=== PATIENT | female | born 1935 | race Caucasian/White ===

== ENCOUNTER 2017-01-24 18:44 | Emergency (ER) | payer OTHER ==
[~2017-01-24] VITALS: Ht 162.6 cm; Wt 99.2 kg
[~2017-01-24 18:44] MED LIST: ADVAIR 250/501 DISK IH; ASPIR 8181 M1 PO; ATENOLOL25 MG PO; CLOPIDOGREL75 MG PO; FUROSEMIDE40 MG PO; LEVOFLOXACIN500 MG PO; LO-DOSE ASPIRIN81 M1 PO; LOVASTATIN40 MG PO; NOVOLOG MI100 UNIT/4 SC; PREDNISONE20 MG PO; PROAIR HFA8.5 GM IH; PROVENTIL,2.5 MG/3 M IH; RAMIPRIL5 MG PO; SPIRIVA1 INHALATI IH; VITAMIN D31000 UNIT PO
[2017-01-24 19:59] VITALS: BP 180/77
== END 2017-01-24 20:04 | disposition home or self-care (01) ==
LOC: EME 18:44
DX: S80.01XA Contusion of right knee, initial encounter (principal); W06.XXXA Fall from bed, initial encounter; Y92.003 Bedroom of unspecified non-institutional (private) residence as the place of occurrence of the external cause; J44.9 Chronic obstructive pulmonary disease, unspecified; Z79.82 Long term (current) use of aspirin; Z87.891 Personal history of nicotine dependence
CPT/HCPCS: 73060; 73564; 99281; 99284

== ENCOUNTER 2017-07-10 14:26 | Inpatient (IN) | payer OTHER ==
[~2017-07-10] VITALS: Ht 162.6 cm; Wt 90.9 kg
[2017-07-10 15:16] LABS: EOSINOPHIL (%) 1.7 % (0-5); EOSINOPHIL COUNT 0.1 K/uL (0-0.3); HEMATOCRIT 30.3 % (36.0-46.0); IMMATURE GRANULOCYTE (%) 0.4 % (0.0-0.7); INSTRUMENT ABS NEUTROPHIL CT 4.3 K/uL; LYMPHOCYTE COUNT 0.6 K/uL (1.0-2.8); MCH 25.5 PG (29.0-34.0); MCHC 30.4 G/DL (30.0-36.0); MCV 83.9 FL (83-99); MEAN PLAT.VOLUME 8.5 uM^3 (9.5-12.4); MONOCYTE (%) 6.7 % (3-12); MONOCYTE COUNT 0.4 K/uL (0-0.8); NEUTROPHIL (%) 79.5 % (45-76); NEUTROPHIL COUNT 4.3 K/uL (1.8-6.4); PLATELET COUNT 183 K/uL (156-360); RBC DIS.WIDTH-CV 13.3 % (11.8-14.6); RBC DIS.WIDTH-SD 41.1 % (39-53); RED BLOOD COUNT 3.61 M/uL (3.80-5.20); WHITE BLOOD COUNT 5.4 K/uL (4.1-10.2)
[2017-07-10 15:27] LABS: CHLORIDE 95 mEq/L (99-109); POTASSIUM 4.7 mEq/L (3.7-5.4); SODIUM 140 mEq/L (136-147)
[2017-07-10 15:30] LABS: GLUCOSE 108 mg/dL (70-99)
[2017-07-10 15:31] LABS: ANION GAP 11 MEQ/L (2-14)
[2017-07-10 15:32] LABS: TOTAL BILIRUBIN 0.4 mg/dL (0.0-1.0)
[2017-07-10 15:33] LABS: ALKALINE PHOSPHATASE 76 IU/L (3-129); GFR ESTIMATE (CALCULATED) 31 mL/min/
[2017-07-10 15:34] LABS: UREA NITROGEN (BUN) 27 mg/dL (9-23)
[2017-07-10 15:36] LABS: CREATINE KINASE 73 IU/L (1-294); TOTAL CK 73 IU/L (1-294)
[2017-07-10 15:47] LABS: TROP-I INTERPRETATION NEGATIVE; TROPONIN-I 0.01 ng/mL (0.0-0.30)
[2017-07-10 16:20] LABS: CK-MB 1.9 ng/mL (0.0-4.9)
[2017-07-10] MEDS ORDERED: FUROSEMIDE20 MG PO ×2 (19:09→19:10)
[2017-07-10] MEDS ORDERED: CARVEDILOL3.125 MG PO (19:10)
[2017-07-10 22:26] VITALS: BP 160/72
[2017-07-10 23:20] LABS: POINT-OF-CARE METER ID UU14208750
[2017-07-10 23:29] LABS: ADD MIUA? YES; BILIRUBIN NEGATIVE; BLOOD SMALL; COLOR YELLOW ((YELLOW)); GLUCOSE (STRIP) >=500; KETONES NEGATIVE; LEUKOCYTES SMALL; NITRITE NEGATIVE; PROTEIN (STRIP) NEGATIVE; SPECIFIC GRAVITY 1.006 (1.000-1.030); UROBILINOGEN 0.2 MG/DL (0.2-1.0)
[2017-07-10 23:44] LABS: BACTERIA NONE SEEN /HPF; EPITHELIAL CELLS NONE SEEN /HPF; MUCUS TRACE /LPF; RED BLOOD CELLS 0-5 /HPF (0-5); UCUL ADDED? YES; WHITE BLOOD CELLS 30-40 /HPF (0-5)
[2017-07-11 01:29] LABS: TROP-I INTERPRETATION NEGATIVE; TROPONIN-I 0.02 ng/mL (0.0-0.30)
[2017-07-11 03:47] VITALS: BP 157/68
[2017-07-11 06:18] LABS: POINT-OF-CARE METER ID UU14208750
[2017-07-11 07:23] VITALS: BP 169/70
[2017-07-11 07:51] LABS: INTERNAL CONTROL VALID? YES
[2017-07-11 07:54] LABS: EOSINOPHIL (%) 0 % (0-5); IMMATURE GRANULOCYTE (%) 0.5 % (0.0-0.7); INSTRUMENT ABS NEUTROPHIL CT 3.2 K/uL; LYMPHOCYTE COUNT 0.5 K/uL (1.0-2.8); MCH 25.6 PG (29.0-34.0); MCHC 30.7 G/DL (30.0-36.0); MCV 83.3 FL (83-99); MEAN PLAT.VOLUME 9.2 uM^3 (9.5-12.4); MONOCYTE (%) 9.2 % (3-12); MONOCYTE COUNT 0.4 K/uL (0-0.8); NEUTROPHIL (%) 78.7 % (45-76); NEUTROPHIL COUNT 3.2 K/uL (1.8-6.4); PLATELET COUNT 223 K/uL (156-360); RBC DIS.WIDTH-CV 13.3 % (11.8-14.6); RBC DIS.WIDTH-SD 40.4 % (39-53); RED BLOOD COUNT 3.24 M/uL (3.80-5.20); WHITE BLOOD COUNT 4.1 K/uL (4.1-10.2)
[2017-07-11 08:19] LABS: ANION GAP 7 MEQ/L (2-14); CHLORIDE 97 MEQ/L (99-109); GFR ESTIMATE (CALCULATED) 31 mL/min/; POTASSIUM 4.5 MEQ/L (3.7-5.4); SAMPLE HEMOLYSIS CHECK 0; SAMPLE ICTERIC CHECK 0; SAMPLE LIPEMIA CHECK 0; SODIUM 143 MEQ/L (136-147); UREA NITROGEN (BUN) 32 mg/dL (9-23)
[2017-07-11 08:21] LABS: TROP-I INTERPRETATION NEGATIVE; TROPONIN-I 0.05 ng/mL (0.0-0.30)
[2017-07-11 08:24] LABS: GLUCOSE 76 mg/dL (70-99)
[2017-07-11 11:38] VITALS: BP 145/65
[2017-07-11 11:41] LABS: POINT-OF-CARE METER ID UU14208750
[2017-07-11 15:42] VITALS: BP 149/65
[2017-07-11 16:48] LABS: POINT-OF-CARE METER ID UU14162508
[2017-07-11 19:09] VITALS: BP 150/60
[2017-07-11 21:41] LABS: POINT-OF-CARE METER ID UU14208750
[2017-07-12 00:17] VITALS: BP 148/69
[2017-07-12 04:09] VITALS: BP 143/61
[2017-07-12 06:47] LABS: POINT-OF-CARE METER ID UU14208750
[2017-07-12 06:56] LABS: HEMATOCRIT 29.1 % (36.0-46.0); MCHC 31.3 G/DL (30.0-36.0); MCV 83.1 FL (83-99); MEAN PLAT.VOLUME 9.1 uM^3 (9.5-12.4); PLATELET COUNT 224 K/uL (156-360); RBC DIS.WIDTH-CV 13.4 % (11.8-14.6); RBC DIS.WIDTH-SD 40.2 % (39-53); WHITE BLOOD COUNT 5.3 K/uL (4.1-10.2)
[2017-07-12 07:47] VITALS: BP 186/74
[2017-07-12 08:14] LABS: ANION GAP 5 MEQ/L (2-14); CHLORIDE 94 MEQ/L (99-109); GFR ESTIMATE (CALCULATED) 24 mL/min/; IRON 30 MCG/DL (35-150); POTASSIUM 5.1 MEQ/L (3.7-5.4); SAMPLE HEMOLYSIS CHECK 0; SAMPLE ICTERIC CHECK 0; SAMPLE LIPEMIA CHECK 0; SODIUM 139 MEQ/L (136-147); UREA NITROGEN (BUN) 40 mg/dL (9-23)
[2017-07-12 08:15] LABS: GLUCOSE 168 mg/dL (70-99)
[2017-07-12 09:32] LABS: INTER. NORMALIZED RATIO 1.2; PROTHROMBIN TIME 12.9 SEC (10.2-12.9)
[2017-07-12 09:35] LABS: PTT 31.4 SEC (25-37)
[2017-07-12 12:16] LABS: POINT-OF-CARE METER ID UU14208750
[2017-07-12 14:57] LABS: TYPE OF FLUID PLEURAL
[2017-07-12 15:35] LABS: BODY FLUID LDH 101 IU/L
[2017-07-12 15:38] VITALS: BP 142/62
[2017-07-12 15:49] LABS: BODY FLUID EOSINOPHILS 0 % (0-25); BODY FLUID RBC'S 2000 /MM^3 (0-100); BODY FLUID WBC'S 611 /MM^3 (0-500); MONONUCLEAR WBC'S 76 %; POLYNUCLEAR WBC'S 24 % (0-25)
[2017-07-12 15:51] LABS: POINT-OF-CARE METER ID UU14208750
[2017-07-12 20:03] LABS: GLUCOSE 196 mg/dL (70-99); LACTATE DEHYDROGENASE 161 IU/L (20-246)
[2017-07-12 21:49] LABS: POINT-OF-CARE METER ID UU14208750
[2017-07-13 00:18] VITALS: BP 136/63
[2017-07-13 06:35] LABS: POINT-OF-CARE METER ID UU14208750
[2017-07-13 07:14] VITALS: BP 166/72
[2017-07-13 07:50] LABS: HEMATOCRIT 30.2 % (36.0-46.0); MCH 25.8 PG (29.0-34.0); MCHC 31.1 G/DL (30.0-36.0); MEAN PLAT.VOLUME 9.3 uM^3 (9.5-12.4); PLATELET COUNT 250 K/uL (156-360); RBC DIS.WIDTH-CV 13.5 % (11.8-14.6); RBC DIS.WIDTH-SD 40.3 % (39-53); RED BLOOD COUNT 3.64 M/uL (3.80-5.20); WHITE BLOOD COUNT 7.5 K/uL (4.1-10.2)
[2017-07-13 08:08] LABS: ANION GAP 7 MEQ/L (2-14); CHLORIDE 96 MEQ/L (99-109); POTASSIUM 5.3 MEQ/L (3.7-5.4); SAMPLE HEMOLYSIS CHECK 0; SAMPLE ICTERIC CHECK 0; SAMPLE LIPEMIA CHECK 0; SODIUM 139 MEQ/L (136-147)
[2017-07-13 08:13] LABS: GFR ESTIMATE (CALCULATED) 24 mL/min/; GLUCOSE 164 mg/dL (70-99); UREA NITROGEN (BUN) 56 mg/dL (9-23)
[2017-07-13 11:42] LABS: POINT-OF-CARE METER ID UU14208750
[2017-07-13 15:52] VITALS: BP 145/66
[2017-07-13 16:06] LABS: POINT-OF-CARE METER ID UU14208750
[2017-07-13 21:10] LABS: POINT-OF-CARE METER ID UU14208750
[2017-07-13 23:18] VITALS: BP 166/72
[2017-07-14 06:40] LABS: POINT-OF-CARE METER ID UU14208750
[2017-07-14 07:20] VITALS: BP 153/76
[2017-07-14 08:00] LABS: ANION GAP 8 MEQ/L (2-14); CHLORIDE 97 MEQ/L (99-109); GFR ESTIMATE (CALCULATED) 23 mL/min/; GLUCOSE 157 mg/dL (70-99); POTASSIUM 5.1 MEQ/L (3.7-5.4); SAMPLE HEMOLYSIS CHECK 0; SAMPLE ICTERIC CHECK 0; SAMPLE LIPEMIA CHECK 0; SODIUM 140 MEQ/L (136-147); UREA NITROGEN (BUN) 60 mg/dL (9-23)
[2017-07-14 11:35] VITALS: BP 164/78
[2017-07-14 11:47] LABS: POINT-OF-CARE METER ID UU14208750
[2017-07-14 15:40] VITALS: BP 162/72
[2017-07-14 16:33] LABS: POINT-OF-CARE METER ID UU14162508
[2017-07-14 21:15] VITALS: BP 137/59
[2017-07-14 21:24] LABS: POINT-OF-CARE METER ID UU14208750
[2017-07-14 23:51] VITALS: BP 121/58
[2017-07-15 06:30] LABS: POINT-OF-CARE METER ID UU14208750
[2017-07-15 07:37] VITALS: BP 140/62
[2017-07-15 08:19] LABS: ANION GAP 10 MEQ/L (2-14); CHLORIDE 97 MEQ/L (99-109); GFR ESTIMATE (CALCULATED) 22 mL/min/; LACTATE DEHYDROGENASE 141 IU/L (20-246); POTASSIUM 4.5 MEQ/L (3.7-5.4); SAMPLE HEMOLYSIS CHECK 0; SAMPLE ICTERIC CHECK 0; SAMPLE LIPEMIA CHECK 0; SODIUM 142 MEQ/L (136-147); UREA NITROGEN (BUN) 65 mg/dL (9-23)
[2017-07-15 08:21] LABS: GLUCOSE 69 mg/dL (70-99)
[2017-07-15 12:04] LABS: POINT-OF-CARE METER ID UU14208750
[2017-07-15 15:32] VITALS: BP 135/62
[2017-07-15 16:54] LABS: POINT-OF-CARE METER ID UU14208750
[2017-07-15 22:07] LABS: POINT-OF-CARE METER ID UU14208750
[2017-07-15 23:36] VITALS: BP 143/66
[2017-07-16 06:40] LABS: POINT-OF-CARE METER ID UU14208750
[2017-07-16 07:40] VITALS: BP 130/58
[2017-07-16 07:47] LABS: ANION GAP 7 MEQ/L (2-14); CHLORIDE 98 MEQ/L (99-109); GFR ESTIMATE (CALCULATED) 24 mL/min/; POTASSIUM 4.5 MEQ/L (3.7-5.4); SAMPLE HEMOLYSIS CHECK 0; SAMPLE ICTERIC CHECK 0; SAMPLE LIPEMIA CHECK 0; SODIUM 140 MEQ/L (136-147); UREA NITROGEN (BUN) 64 mg/dL (9-23)
[2017-07-16 08:03] LABS: GLUCOSE 88 mg/dL (70-99)
[2017-07-16 12:01] LABS: POINT-OF-CARE METER ID UU14162508
[2017-07-16 15:02] LABS: POINT-OF-CARE METER ID UU14107333
[2017-07-16 18:52] VITALS: BP 143/68
[2017-07-16 21:36] LABS: POINT-OF-CARE METER ID UU14162508
[2017-07-16 23:55] VITALS: BP 159/71
[2017-07-17 03:50] VITALS: BP 144/66
[2017-07-17 06:47] LABS: POINT-OF-CARE METER ID UU14162508
[2017-07-17 08:00] VITALS: BP 180/75
[2017-07-17 08:05] LABS: HEMATOCRIT 28.6 % (36.0-46.0); MCH 26.2 PG (29.0-34.0); MCHC 30.8 G/DL (30.0-36.0); MCV 85.1 FL (83-99); MEAN PLAT.VOLUME 9.8 uM^3 (9.5-12.4); PLATELET COUNT 203 K/uL (156-360); RBC DIS.WIDTH-SD 43.6 % (39-53); RED BLOOD COUNT 3.36 M/uL (3.80-5.20); WHITE BLOOD COUNT 8.8 K/uL (4.1-10.2)
[2017-07-17 08:29] LABS: ANION GAP 5 MEQ/L (2-14); CHLORIDE 100 MEQ/L (99-109); GFR ESTIMATE (CALCULATED) 27 mL/min/; GLUCOSE 100 mg/dL (70-99); POTASSIUM 4.5 MEQ/L (3.7-5.4); SAMPLE HEMOLYSIS CHECK 0; SAMPLE ICTERIC CHECK 0; SAMPLE LIPEMIA CHECK 0; SODIUM 141 MEQ/L (136-147); UREA NITROGEN (BUN) 60 mg/dL (9-23)
[2017-07-17 11:50] LABS: POINT-OF-CARE METER ID UU14162508
[2017-07-17 15:12] VITALS: BP 150/66
[2017-07-17 17:03] LABS: POINT-OF-CARE METER ID UU14162508
[2017-07-17 21:15] LABS: POINT-OF-CARE METER ID UU14162508
[2017-07-17 23:11] VITALS: BP 143/63
[2017-07-18 06:49] LABS: POINT-OF-CARE METER ID UU14162508
[2017-07-18 07:39] LABS: ANION GAP 5 MEQ/L (2-14); CHLORIDE 100 MEQ/L (99-109); GFR ESTIMATE (CALCULATED) 27 mL/min/; GLUCOSE 84 mg/dL (70-99); POTASSIUM 4.4 MEQ/L (3.7-5.4); SAMPLE HEMOLYSIS CHECK 0; SAMPLE ICTERIC CHECK 0; SAMPLE LIPEMIA CHECK 0; SODIUM 142 MEQ/L (136-147); UREA NITROGEN (BUN) 54 mg/dL (9-23)
[2017-07-18 07:50] VITALS: BP 158/62
[2017-07-18 12:19] LABS: POINT-OF-CARE METER ID UU14162508
[2017-07-18] MEDS ORDERED: PREDNISONE10 MG PO (15:35)
[2017-07-18] MEDS ORDERED: DOCUSATE SODIU100 MG PO (15:35)
[2017-07-18] MEDS ORDERED: POLYETHYLENE GL17 GM PO (15:35)
[2017-07-18] MEDS ORDERED: FERROUS SULFAT325 MG PO (15:35)
[2017-07-18 16:51] VITALS: BP 149/67
[2017-07-18 17:12] LABS: POINT-OF-CARE METER ID UU14162508
== END 2017-07-18 17:16 | disposition home health service (06) | DRG 166 ==
LOC: EME 14:26 → EDOF 19:10 → 2EASTP 19:10 → ENRESERV 19:19 → 2EASTP 22:07
PROVIDERS: Emergency Medicine; Hospitalist; Internal Medicine; Internal Medicine Pulmonary Disease; Radiology Diagnostic Radiology
DX: D02.22 Carcinoma in situ of left bronchus and lung (principal); J44.0 Chronic obstructive pulmonary disease with (acute) lower respiratory infection; J96.11 Chronic respiratory failure with hypoxia; J15.9 Unspecified bacterial pneumonia; N39.0 Urinary tract infection, site not specified; I50.9 Heart failure, unspecified; I13.0 Hypertensive heart and chronic kidney disease with heart failure and stage 1 through stage 4 chronic kidney disease, or unspecified chronic kidney disease; E78.5 Hyperlipidemia, unspecified; F32.9 Major depressive disorder, single episode, unspecified; E11.22 Type 2 diabetes mellitus with diabetic chronic kidney disease; J44.1 Chronic obstructive pulmonary disease with (acute) exacerbation; N18.3 Chronic kidney disease, stage 3 (moderate); J98.11 Atelectasis; K21.9 Gastro-esophageal reflux disease without esophagitis; D64.9 Anemia, unspecified; Z99.81 Dependence on supplemental oxygen; Z87.891 Personal history of nicotine dependence; E66.01 Morbid (severe) obesity due to excess calories; Z68.34 Body mass index [BMI] 34.0-34.9, adult; J90 Pleural effusion, not elsewhere classified; J98.09 Other diseases of bronchus, not elsewhere classified
CPT/HCPCS: 71010; 71020; 71250; 76942; 80048; 80053; 81003; 82272; 82550; 82553; 82607; 82746; 82945; 82947 91; 82948; 83540; 83605; 83615; 83615 91; 84155; 84157; 84443; 84466; 84484; 85025; 85027; 85610; 85730; 87040; 87070; 87075; 87077; 87086; 87116; 87186; 87205; 87206; 87449; 88108; 88305; 89051; 93005; 94640; 94640 76; 94760; 94799; 97530 GO; 99202; 99281; 99285; J0461; J1644; J1815; J1956; J2175; J2250; J2310; J2550; J2930; J3010; J7512; J7644

== ENCOUNTER 2017-07-31 18:07 | Inpatient (IN) | payer OTHER ==
[~2017-07-31] VITALS: Ht 162.6 cm; Wt 94.7 kg
[~2017-07-31 18:07] MED LIST changes: +CARVEDILOL3.125 MG PO; +DOCUSATE SODIU100 MG PO; +FERROUS SULFAT325 MG PO; +FUROSEMIDE20 MG PO; +POLYETHYLENE GL17 GM PO; +PREDNISONE10 MG PO
[2017-07-31 19:20] LABS: HEMATOCRIT 31.7 % (36.0-46.0); MCH 26.4 PG (29.0-34.0); MCV 88.1 FL (83-99); MEAN PLAT.VOLUME 9.4 uM^3 (9.5-12.4); PLATELET COUNT 220 K/uL (156-360); RBC DIS.WIDTH-CV 15.4 % (11.8-14.6); WHITE BLOOD COUNT 11.1 K/uL (4.1-10.2)
[2017-07-31 19:26] LABS: INTER. NORMALIZED RATIO 1.2; PROTHROMBIN TIME 13.6 SEC (10.2-12.9)
[2017-07-31 19:28] LABS: PTT 31.5 SEC (25-37)
[2017-07-31 19:32] LABS: CHLORIDE 95 mEq/L (99-109); POTASSIUM 4.7 mEq/L (3.7-5.4); SODIUM 139 mEq/L (136-147)
[2017-07-31 19:34] LABS: GLUCOSE 165 mg/dL (70-99)
[2017-07-31 19:35] LABS: ANION GAP 13 MEQ/L (2-14)
[2017-07-31 19:38] LABS: GFR ESTIMATE (CALCULATED) 29 mL/min/
[2017-07-31 19:39] LABS: UREA NITROGEN (BUN) 33 mg/dL (9-23)
[2017-07-31 19:45] LABS: TROP-I INTERPRETATION POSITIVE
[2017-07-31 19:46] LABS: TROPONIN-I 2.13 ng/mL (0.0-0.30)
[2017-07-31 19:53] LABS: VENOUS PCO2 94 mm Hg (41-51)
[2017-07-31 19:54] LABS: CARBON DIOXIDE (BICARBONATE) > 40.0 MEQ/L (20-31)
[2017-07-31 21:00] LABS: POINT-OF-CARE METER ID UU13113747
[2017-07-31] MEDS ORDERED: NOVOLIN,HU100 UNITS/ SC (21:32)
[2017-07-31] MEDS ORDERED: COLACE100 MG PO (21:32)
[2017-07-31 23:31] LABS: VENOUS PCO2 89 mm Hg (41-51)
[2017-07-31 23:34] LABS: CARBON DIOXIDE (BICARBONATE) > 40.0 MEQ/L (20-31)
[2017-08-01] VITALS (22 sets, daily range): BP systolic 50–173; BP diastolic 33–92
[2017-08-01 01:29] LABS: BASE EXCESS 4.3 mEq/L (-3 to +3); BICARBONATE 37.1 mEq/L (22-26); CARBOXY HGB 2.6 % (0-5); COMMENTS - BLOOD GASES A+C+; DEVICE VENT; FI02 100 %; METHEMOGLOBIN 1.9 % (0-1.5); MODE NIV; PCO2 131 mm Hg (35-45); PO2 170 mm Hg (80-100); SITE RR; TOTAL RESP RATE 26 resp/min
[2017-08-01 01:30] LABS: PEEP 3 CM/H20; PRES. SUPPORT 10 CM/H2O; pH 7.06 (7.35-7.45)
[2017-08-01 01:45] LABS: POINT-OF-CARE METER ID UU14174217; POINT-OF-CARE USER ID 609231305
[2017-08-01 03:11] LABS: METH RESISTANT S AUREUS PCR NEGATIVE (NEGATIVE)
[2017-08-01 03:14] LABS: PROBE CHECK PASS; SPECIMEN PROCESSING CONTROL PASS
[2017-08-01 03:25] LABS: BASE EXCESS 6.7 mEq/L (-3 to +3); BICARBONATE 32.3 mEq/L (22-26); CARBOXY HGB 2.2 % (0-5); PCO2 51 mm Hg (35-45); PO2 177 mm Hg (80-100); pH 7.41 (7.35-7.45)
[2017-08-01 03:26] LABS: COMMENTS - BLOOD GASES C+; DEVICE VENT; FI02 50 %; MECHANICAL RATE 24 resp/min; MODE A/C; PEEP 5 CM/H20; SITE RR; TIDAL VOLUME 450 ML; TOTAL RESP RATE 24 resp/min
[2017-08-01 04:33] LABS: ADD MIUA? YES; BILIRUBIN NEGATIVE; BLOOD SMALL; COLOR AMBER ((YELLOW)); GLUCOSE (STRIP) NEGATIVE; KETONES NEGATIVE; LEUKOCYTES LARGE; NITRITE NEGATIVE; PROTEIN (STRIP) 30; SPECIFIC GRAVITY 1.016 (1.000-1.030)
[2017-08-01 04:41] LABS: BACTERIA RARE /HPF; EPITHELIAL CELLS RARE /HPF; MUCUS TRACE /LPF; UCUL ADDED? YES; WHITE BLOOD CELLS TNTC /HPF (0-5); WHITE BLOOD CELLS CLUMP FEW /HPF (0-5)
[2017-08-01 05:02] LABS: HEMATOCRIT 25.3 % (36.0-46.0); MCH 26.4 PG (29.0-34.0); MCV 87.8 FL (83-99); MEAN PLAT.VOLUME 9.6 uM^3 (9.5-12.4); PLATELET COUNT 191 K/uL (156-360); RBC DIS.WIDTH-CV 15.3 % (11.8-14.6); RBC DIS.WIDTH-SD 48.7 % (39-53); RED BLOOD COUNT 2.88 M/uL (3.80-5.20); WHITE BLOOD COUNT 9.5 K/uL (4.1-10.2)
[2017-08-01 05:24] LABS: TROP-I INTERPRETATION POSITIVE; TROPONIN-I 2.66 ng/mL (0.0-0.30)
[2017-08-01 09:39] LABS: ALKALINE PHOSPHATASE 68 IU/L (3-129); ANION GAP 13 MEQ/L (2-14); CHLORIDE 95 MEQ/L (99-109); GFR ESTIMATE (CALCULATED) 24 mL/min/; GLUCOSE 208 mg/dL (70-99); POTASSIUM 4.9 MEQ/L (3.7-5.4); SAMPLE HEMOLYSIS CHECK 0; SAMPLE ICTERIC CHECK 0; SAMPLE LIPEMIA CHECK 0; SODIUM 139 MEQ/L (136-147); TOTAL BILIRUBIN 0.6 MG/DL (0.0-1.0); UREA NITROGEN (BUN) 43 mg/dL (9-23)
[2017-08-01 10:25] LABS: EOSINOPHIL (%) 0 % (0-5); IMMATURE GRANULOCYTE (%) 0.4 % (0.0-0.7); INSTRUMENT ABS NEUTROPHIL CT 7.4 K/uL; LYMPHOCYTE COUNT 0.4 K/uL (1.0-2.8); MCH 27.6 PG (29.0-34.0); MCHC 31.9 G/DL (30.0-36.0); MCV 86.4 FL (83-99); MEAN PLAT.VOLUME 9.6 uM^3 (9.5-12.4); MONOCYTE COUNT 0.4 K/uL (0-0.8); NEUTROPHIL (%) 89.8 % (45-76); NEUTROPHIL COUNT 7.4 K/uL (1.8-6.4); PLATELET COUNT 209 K/uL (156-360); RBC DIS.WIDTH-CV 15.6 % (11.8-14.6); RED BLOOD COUNT 3.01 M/uL (3.80-5.20); WHITE BLOOD COUNT 8.2 K/uL (4.1-10.2)
[2017-08-01 11:03] LABS: TROP-I INTERPRETATION POSITIVE; TROPONIN-I 3.33 ng/mL (0.0-0.30)
[2017-08-01 11:35] LABS: POINT-OF-CARE METER ID UU14162636
[2017-08-01 14:40] LABS: POINT-OF-CARE METER ID UU13113748
[2017-08-01 16:28] LABS: TROP-I INTERPRETATION POSITIVE; TROPONIN-I 4.13 ng/mL (0.0-0.30)
[2017-08-01 17:44] LABS: POINT-OF-CARE METER ID UU13113748
[2017-08-01 22:17] LABS: TROP-I INTERPRETATION POSITIVE; TROPONIN-I 4.98 ng/mL (0.0-0.30)
[2017-08-01 22:21] LABS: POINT-OF-CARE METER ID UU13113748
[2017-08-02] VITALS (24 sets, daily range): BP systolic 98–151; BP diastolic 35–87
[2017-08-02 03:32] LABS: POINT-OF-CARE METER ID UU14174217
[2017-08-02 05:33] LABS: EOSINOPHIL (%) 0.1 % (0-5); HEMATOCRIT 22.7 % (36.0-46.0); IMMATURE GRANULOCYTE (%) 0.3 % (0.0-0.7); INSTRUMENT ABS NEUTROPHIL CT 5.9 K/uL; LYMPHOCYTE COUNT 0.8 K/uL (1.0-2.8); MCH 26.3 PG (29.0-34.0); MCHC 30.8 G/DL (30.0-36.0); MCV 85.3 FL (83-99); MEAN PLAT.VOLUME 9.9 uM^3 (9.5-12.4); MONOCYTE (%) 8.8 % (3-12); MONOCYTE COUNT 0.7 K/uL (0-0.8); NEUTROPHIL (%) 79.9 % (45-76); NEUTROPHIL COUNT 5.9 K/uL (1.8-6.4); PLATELET COUNT 184 K/uL (156-360); RBC DIS.WIDTH-CV 16.6 % (11.8-14.6); RBC DIS.WIDTH-SD 51.6 % (39-53); RED BLOOD COUNT 2.66 M/uL (3.80-5.20); WHITE BLOOD COUNT 7.4 K/uL (4.1-10.2)
[2017-08-02 05:37] LABS: BASE EXCESS 6.1 mEq/L (-3 to +3); CARBOXY HGB 2.5 % (0-5); METHEMOGLOBIN 1.4 % (0-1.5)
[2017-08-02 05:39] LABS: BICARBONATE 28.7 mEq/L (22-26); COMMENTS - BLOOD GASES A+C+; DEVICE VENT; FI02 30 %; MODE AC; PCO2 32 mm Hg (35-45); PO2 80 mm Hg (80-100); SITE RR; pH 7.56 (7.35-7.45)
[2017-08-02 05:40] LABS: MECHANICAL RATE 24 resp/min; PEEP 5 CM/H20; TIDAL VOLUME 450 ML; TOTAL RESP RATE 24 resp/min
[2017-08-02 05:48] LABS: TROP-I INTERPRETATION POSITIVE; TROPONIN-I 5.37 ng/mL (0.0-0.30)
[2017-08-02 05:58] LABS: ANION GAP 12 MEQ/L (2-14); CHLORIDE 99 MEQ/L (99-109); GFR ESTIMATE (CALCULATED) 24 mL/min/; GLUCOSE 132 mg/dL (70-99); POTASSIUM 3.7 MEQ/L (3.7-5.4); SAMPLE HEMOLYSIS CHECK 0; SAMPLE ICTERIC CHECK 0; SAMPLE LIPEMIA CHECK 0; SODIUM 139 MEQ/L (136-147); UREA NITROGEN (BUN) 42 mg/dL (9-23)
[2017-08-02 11:23] LABS: TROP-I INTERPRETATION POSITIVE; TROPONIN-I 5.16 ng/mL (0.0-0.30)
[2017-08-02 12:04] LABS: POINT-OF-CARE METER ID UU14174217
[2017-08-02 16:31] LABS: TROP-I INTERPRETATION POSITIVE; TROPONIN-I 4.06 ng/mL (0.0-0.30)
[2017-08-02 17:30] LABS: POINT-OF-CARE METER ID UU14174217
[2017-08-02 22:02] LABS: TROP-I INTERPRETATION POSITIVE; TROPONIN-I 2.98 ng/mL (0.0-0.30)
[2017-08-03] VITALS (32 sets, daily range): BP systolic 93–149; BP diastolic 41–84
[2017-08-03 01:07] LABS: POINT-OF-CARE METER ID UU14174217
[2017-08-03 06:40] LABS: POINT-OF-CARE METER ID UU14174217
[2017-08-03 07:22] LABS: HEMATOCRIT 20.9 % (36.0-46.0); MCH 26.3 PG (29.0-34.0); MCHC 29.7 G/DL (30.0-36.0); MCV 88.6 FL (83-99); MEAN PLAT.VOLUME 10.2 uM^3 (9.5-12.4); PLATELET COUNT 138 K/uL (156-360); RBC DIS.WIDTH-CV 16.5 % (11.8-14.6); RBC DIS.WIDTH-SD 52.5 % (39-53); RED BLOOD COUNT 2.36 M/uL (3.80-5.20); WHITE BLOOD COUNT 4.6 K/uL (4.1-10.2)
[2017-08-03 07:42] LABS: ALKALINE PHOSPHATASE 61 IU/L (3-129); ANION GAP 8 MEQ/L (2-14); CHLORIDE 103 MEQ/L (99-109); GFR ESTIMATE (CALCULATED) 27 mL/min/; GLUCOSE 184 mg/dL (70-99); POTASSIUM 3.8 MEQ/L (3.7-5.4); SAMPLE HEMOLYSIS CHECK 0; SAMPLE ICTERIC CHECK 0; SAMPLE LIPEMIA CHECK 0; SODIUM 138 MEQ/L (136-147); TOTAL BILIRUBIN 0.5 MG/DL (0.0-1.0); UREA NITROGEN (BUN) 45 mg/dL (9-23)
[2017-08-03 11:47] LABS: POINT-OF-CARE METER ID UU14174217
[2017-08-03 17:31] LABS: POINT-OF-CARE METER ID UU14208751
[2017-08-03 23:51] LABS: POINT-OF-CARE METER ID UU14208751; POINT-OF-CARE USER ID RADDRS44
[2017-08-04] VITALS (23 sets, daily range): BP systolic 100–148; BP diastolic 49–91
[2017-08-04 05:09] LABS: BASE EXCESS -0.1 mEq/L (-3 to +3); BICARBONATE 27.3 mEq/L (22-26); CARBOXY HGB 2.3 % (0-5); METHEMOGLOBIN 1.2 % (0-1.5); PO2 86 mm Hg (80-100)
[2017-08-04 05:10] LABS: COMMENTS - BLOOD GASES C+A+; DEVICE VENTILATOR; FI02 40 %; MECHANICAL RATE 18 resp/min; MODE AC; PCO2 58 mm Hg (35-45); PEEP 5 CM/H20; SITE LB; TIDAL VOLUME 400 ML; TOTAL RESP RATE 18 resp/min
[2017-08-04 05:11] LABS: pH 7.28 (7.35-7.45)
[2017-08-04 05:50] LABS: EOSINOPHIL (%) 0 % (0-5); HEMATOCRIT 28.9 % (36.0-46.0); IMMATURE GRANULOCYTE (%) 0.5 % (0.0-0.7); INSTRUMENT ABS NEUTROPHIL CT 3.8 K/uL; LYMPHOCYTE COUNT 0.2 K/uL (1.0-2.8); MCH 27.7 PG (29.0-34.0); MCHC 31.5 G/DL (30.0-36.0); MCV 87.8 FL (83-99); MEAN PLAT.VOLUME 10.2 uM^3 (9.5-12.4); MONOCYTE (%) 2.4 % (3-12); MONOCYTE COUNT 0.1 K/uL (0-0.8); NEUTROPHIL COUNT 3.8 K/uL (1.8-6.4); PLATELET COUNT 142 K/uL (156-360); RBC DIS.WIDTH-CV 16.4 % (11.8-14.6); RBC DIS.WIDTH-SD 52.6 % (39-53); RED BLOOD COUNT 3.29 M/uL (3.80-5.20); WHITE BLOOD COUNT 4.1 K/uL (4.1-10.2)
[2017-08-04 06:23] LABS: ANION GAP 9 MEQ/L (2-14); CHLORIDE 105 MEQ/L (99-109); GFR ESTIMATE (CALCULATED) 27 mL/min/; SAMPLE HEMOLYSIS CHECK 0; SAMPLE ICTERIC CHECK 0; SAMPLE LIPEMIA CHECK 0; SODIUM 140 MEQ/L (136-147); UREA NITROGEN (BUN) 54 mg/dL (9-23)
[2017-08-04 06:26] LABS: GLUCOSE 307 mg/dL (70-99); POTASSIUM 4.7 MEQ/L (3.7-5.4)
[2017-08-04 06:36] LABS: POINT-OF-CARE METER ID UU14174217; POINT-OF-CARE USER ID RADDRS44
[2017-08-04 11:49] LABS: EOSINOPHIL (%) 0 % (0-5); IMMATURE GRANULOCYTE (%) 1.3 % (0.0-0.7); IMMATURE GRANULOCYTE COUNT 0.1 K/uL; INSTRUMENT ABS NEUTROPHIL CT 5.8 K/uL; LYMPHOCYTE COUNT 1.5 K/uL (1.0-2.8); MCH 26.8 PG (29.0-34.0); MCHC 30.6 G/DL (30.0-36.0); MCV 87.6 FL (83-99); MEAN PLAT.VOLUME 9.9 uM^3 (9.5-12.4); MONOCYTE (%) 4.4 % (3-12); MONOCYTE COUNT 0.3 K/uL (0-0.8); NEUTROPHIL (%) 75.1 % (45-76); NEUTROPHIL COUNT 5.8 K/uL (1.8-6.4); NRBC (%) 0.4 /100 WBC (0-0); PLATELET COUNT 219 K/uL (156-360); RBC DIS.WIDTH-CV 16.1 % (11.8-14.6); RBC DIS.WIDTH-SD 52.1 % (39-53); RED BLOOD COUNT 3.88 M/uL (3.80-5.20); WHITE BLOOD COUNT 7.7 K/uL (4.1-10.2)
[2017-08-04 11:59] LABS: POTASSIUM 4.3 mEq/L (3.7-5.4); SODIUM 140 mEq/L (136-147)
[2017-08-04 11:59] LABS: POINT-OF-CARE METER ID UU13113748
[2017-08-04 12:00] LABS: MAGNESIUM 2.2 mg/dL (1.3-2.7)
[2017-08-04 12:01] LABS: GLUCOSE 340 mg/dL (70-99)
[2017-08-04 12:03] LABS: BASE EXCESS -1.9 mEq/L (-3 to +3); BICARBONATE 23.7 mEq/L (22-26); CARBOXY HGB 1.6 % (0-5); METHEMOGLOBIN 1.6 % (0-1.5); pH 7.35 (7.35-7.45)
[2017-08-04 12:03] LABS: ANION GAP 16 MEQ/L (2-14)
[2017-08-04 12:05] LABS: GFR ESTIMATE (CALCULATED) 27 mL/min/
[2017-08-04 12:06] LABS: CHLORIDE 105 mEq/L (99-109); UREA NITROGEN (BUN) 52 mg/dL (9-23)
[2017-08-04 12:07] LABS: COMMENTS - BLOOD GASES A+C+; DEVICE 840; FI02 100 %; INSPIRATORY/EXPIRATORY RATIO 450 RATIO; MECHANICAL RATE 24 resp/min; MODE AC; PCO2 43 mm Hg (35-45); PEEP 8 CM/H20; PO2 188 mm Hg (80-100); SITE LR; TOTAL RESP RATE 24 resp/min
[2017-08-04 12:11] LABS: TROP-I INTERPRETATION POSITIVE
[2017-08-04 12:13] LABS: TROPONIN-I 1.71 ng/mL (0.0-0.30)
[2017-08-04 17:32] LABS: POINT-OF-CARE METER ID UU13113748
[2017-08-04 23:58] LABS: POINT-OF-CARE METER ID UU14208751; POINT-OF-CARE USER ID RADDRS44
[2017-08-05] VITALS (20 sets, daily range): BP systolic 100–134; BP diastolic 44–76
[2017-08-05 06:41] LABS: POINT-OF-CARE METER ID UU14208751; POINT-OF-CARE USER ID RADDRS44
[2017-08-05 12:22] LABS: POINT-OF-CARE METER ID UU14208751
[2017-08-05 12:35] LABS: EOSINOPHIL (%) 0 % (0-5); HEMATOCRIT 26.2 % (36.0-46.0); IMMATURE GRANULOCYTE (%) 0.2 % (0.0-0.7); INSTRUMENT ABS NEUTROPHIL CT 4.2 K/uL; LYMPHOCYTE COUNT 0.2 K/uL (1.0-2.8); MCH 27.2 PG (29.0-34.0); MCHC 31.3 G/DL (30.0-36.0); MCV 86.8 FL (83-99); MEAN PLAT.VOLUME 10.1 uM^3 (9.5-12.4); MONOCYTE (%) 5.9 % (3-12); MONOCYTE COUNT 0.3 K/uL (0-0.8); NEUTROPHIL (%) 89.9 % (45-76); NEUTROPHIL COUNT 4.2 K/uL (1.8-6.4); PLATELET COUNT 158 K/uL (156-360); RBC DIS.WIDTH-CV 16.6 % (11.8-14.6); RBC DIS.WIDTH-SD 52.3 % (39-53); WHITE BLOOD COUNT 4.7 K/uL (4.1-10.2)
[2017-08-05 12:40] LABS: RED BLOOD COUNT 3.02 M/uL (3.80-5.20)
[2017-08-05 12:56] LABS: ANION GAP 12 MEQ/L (2-14); CHLORIDE 108 MEQ/L (99-109); GFR ESTIMATE (CALCULATED) 33 mL/min/; GLUCOSE 271 mg/dL (70-99); POTASSIUM 4.6 MEQ/L (3.7-5.4); SAMPLE HEMOLYSIS CHECK 0; SAMPLE ICTERIC CHECK 0; SAMPLE LIPEMIA CHECK 0; SODIUM 142 MEQ/L (136-147); UREA NITROGEN (BUN) 63 mg/dL (9-23)
[2017-08-05 17:46] LABS: POINT-OF-CARE METER ID UU13113748
[2017-08-05 23:38] LABS: POINT-OF-CARE METER ID UU14208751
[2017-08-06] VITALS (22 sets, daily range): BP systolic 110–145; BP diastolic 44–85
[2017-08-06 05:11] LABS: POINT-OF-CARE METER ID UU14174217; POINT-OF-CARE USER ID PHATLC
[2017-08-06 05:43] LABS: EOSINOPHIL (%) 0 % (0-5); HEMATOCRIT 26.9 % (36.0-46.0); IMMATURE GRANULOCYTE (%) 0.5 % (0.0-0.7); INSTRUMENT ABS NEUTROPHIL CT 4.9 K/uL; LYMPHOCYTE COUNT 0.2 K/uL (1.0-2.8); MCH 26.3 PG (29.0-34.0); MCHC 30.5 G/DL (30.0-36.0); MCV 86.2 FL (83-99); MONOCYTE (%) 7.3 % (3-12); MONOCYTE COUNT 0.4 K/uL (0-0.8); NEUTROPHIL (%) 88.9 % (45-76); NEUTROPHIL COUNT 4.9 K/uL (1.8-6.4); PLATELET COUNT 186 K/uL (156-360); RBC DIS.WIDTH-CV 16.9 % (11.8-14.6); RBC DIS.WIDTH-SD 53.1 % (39-53); RED BLOOD COUNT 3.12 M/uL (3.80-5.20); WHITE BLOOD COUNT 5.5 K/uL (4.1-10.2)
[2017-08-06 07:00] LABS: ANION GAP 11 MEQ/L (2-14); CHLORIDE 104 MEQ/L (99-109); GFR ESTIMATE (CALCULATED) 31 mL/min/; GLUCOSE 265 mg/dL (70-99); POTASSIUM 4.5 MEQ/L (3.7-5.4); SAMPLE HEMOLYSIS CHECK 0; SAMPLE ICTERIC CHECK 0; SAMPLE LIPEMIA CHECK 0; SODIUM 139 MEQ/L (136-147); UREA NITROGEN (BUN) 74 mg/dL (9-23)
[2017-08-06 11:02] LABS: TYPE OF FLUID PLEURAL
[2017-08-06 11:29] LABS: BODY FLUID LDH 245 IU/L
[2017-08-06 11:56] LABS: BODY FLUID EOSINOPHILS 0 % (0-25); BODY FLUID RBC'S 161000 /MM^3 (0-100); BODY FLUID WBC'S 631 /MM^3 (0-500); MONONUCLEAR WBC'S 37 %; POLYNUCLEAR WBC'S 63 % (0-25)
[2017-08-06 12:34] LABS: POINT-OF-CARE METER ID UU14208751
[2017-08-06 18:25] LABS: POINT-OF-CARE METER ID UU14174217
[2017-08-07] VITALS (24 sets, daily range): BP systolic 92–150; BP diastolic 43–73
[2017-08-07 00:51] LABS: POINT-OF-CARE METER ID UU14174217
[2017-08-07 06:31] LABS: POINT-OF-CARE METER ID UU13113748
[2017-08-07 12:07] LABS: POINT-OF-CARE METER ID UU13113803
[2017-08-07 12:13] LABS: BASE EXCESS 5.9 mEq/L (-3 to +3); BICARBONATE 29.7 mEq/L (22-26); CARBOXY HGB 1.6 % (0-5); COMMENTS - BLOOD GASES A+C+; DEVICE VENT; FI02 30 %; METHEMOGLOBIN 1.2 % (0-1.5); PCO2 39 mm Hg (35-45); PO2 69 mm Hg (80-100); SITE LR; pH 7.49 (7.35-7.45)
[2017-08-07 12:14] LABS: MECHANICAL RATE 24 resp/min; MODE AC/VC+; PEEP 8 CM/H20; TIDAL VOLUME 450 ML; TOTAL RESP RATE 24 resp/min
[2017-08-07 13:21] LABS: EOSINOPHIL (%) 0 % (0-5); HEMATOCRIT 25.7 % (36.0-46.0); IMMATURE GRANULOCYTE (%) 1.1 % (0.0-0.7); IMMATURE GRANULOCYTE COUNT 0.1 K/uL; INSTRUMENT ABS NEUTROPHIL CT 5.1 K/uL; LYMPHOCYTE COUNT 0.2 K/uL (1.0-2.8); MCH 27.7 PG (29.0-34.0); MCHC 31.9 G/DL (30.0-36.0); MCV 86.8 FL (83-99); MEAN PLAT.VOLUME 10.4 uM^3 (9.5-12.4); MONOCYTE (%) 5.4 % (3-12); MONOCYTE COUNT 0.3 K/uL (0-0.8); NEUTROPHIL (%) 90.1 % (45-76); NEUTROPHIL COUNT 5.1 K/uL (1.8-6.4); PLATELET COUNT 193 K/uL (156-360); RBC DIS.WIDTH-CV 16.8 % (11.8-14.6); RBC DIS.WIDTH-SD 53.3 % (39-53); RED BLOOD COUNT 2.96 M/uL (3.80-5.20); WHITE BLOOD COUNT 5.7 K/uL (4.1-10.2)
[2017-08-07 13:48] LABS: ANION GAP 10 MEQ/L (2-14); CHLORIDE 103 MEQ/L (99-109); GFR ESTIMATE (CALCULATED) 27 mL/min/; GLUCOSE 303 mg/dL (70-99); POTASSIUM 4.6 MEQ/L (3.7-5.4); SAMPLE HEMOLYSIS CHECK 0; SAMPLE ICTERIC CHECK 0; SAMPLE LIPEMIA CHECK 0; SODIUM 141 MEQ/L (136-147); UREA NITROGEN (BUN) 96 mg/dL (9-23)
[2017-08-07 17:58] LABS: POINT-OF-CARE METER ID UU13113803
[2017-08-08] VITALS (23 sets, daily range): BP systolic 0–151; BP diastolic 0–93
[2017-08-08 01:45] LABS: POINT-OF-CARE METER ID UU13113803
[2017-08-08 05:42] LABS: BASE EXCESS 9.6 mEq/L (-3 to +3); BICARBONATE 33.5 mEq/L (22-26); CARBOXY HGB 1.9 % (0-5); COMMENTS - BLOOD GASES C+A+; METHEMOGLOBIN 1.4 % (0-1.5); PCO2 42 mm Hg (35-45); PO2 61 mm Hg (80-100); SITE LR; pH 7.51 (7.35-7.45)
[2017-08-08 05:43] LABS: DEVICE 980 VENT; FI02 30 %; INSPIRATION TIME 0.9 seconds; MECHANICAL RATE 24 resp/min; MODE AC VC+; PEEP 8 CM/H20; TIDAL VOLUME 450 ML; TOTAL RESP RATE 24 resp/min
[2017-08-08 06:13] LABS: EOSINOPHIL (%) 0.1 % (0-5); HEMATOCRIT 26.3 % (36.0-46.0); IMMATURE GRANULOCYTE (%) 1.6 % (0.0-0.7); IMMATURE GRANULOCYTE COUNT 0.1 K/uL; INSTRUMENT ABS NEUTROPHIL CT 5.8 K/uL; LYMPHOCYTE COUNT 0.3 K/uL (1.0-2.8); MCH 26.9 PG (29.0-34.0); MCHC 31.2 G/DL (30.0-36.0); MCV 86.2 FL (83-99); MEAN PLAT.VOLUME 10.4 uM^3 (9.5-12.4); MONOCYTE (%) 8.3 % (3-12); MONOCYTE COUNT 0.6 K/uL (0-0.8); NEUTROPHIL (%) 85.7 % (45-76); NEUTROPHIL COUNT 5.8 K/uL (1.8-6.4); NRBC (%) 0.3 /100 WBC (0-0); PLATELET COUNT 217 K/uL (156-360); RBC DIS.WIDTH-CV 16.6 % (11.8-14.6); RBC DIS.WIDTH-SD 52.1 % (39-53); RED BLOOD COUNT 3.05 M/uL (3.80-5.20); WHITE BLOOD COUNT 6.7 K/uL (4.1-10.2)
[2017-08-08 06:32] LABS: POINT-OF-CARE METER ID UU13113803
[2017-08-08 06:44] LABS: ANION GAP 11 MEQ/L (2-14); CHLORIDE 101 MEQ/L (99-109); GFR ESTIMATE (CALCULATED) 25 mL/min/; GLUCOSE 217 mg/dL (70-99); MAGNESIUM 2.2 mg/dl (1.3-2.7); POTASSIUM 4.4 MEQ/L (3.7-5.4); SAMPLE HEMOLYSIS CHECK 0; SAMPLE ICTERIC CHECK 0; SAMPLE LIPEMIA CHECK 0; SODIUM 142 MEQ/L (136-147)
[2017-08-08 06:46] LABS: UREA NITROGEN (BUN) 104 mg/dL (9-23)
[2017-08-08 11:43] LABS: POINT-OF-CARE METER ID UU14162636; POINT-OF-CARE USER ID 612031313
[2017-08-08 18:19] LABS: POINT-OF-CARE METER ID UU14162636; POINT-OF-CARE USER ID 612031313
[2017-08-09] VITALS (23 sets, daily range): BP systolic 114–155; BP diastolic 49–76
[2017-08-09 00:38] LABS: POINT-OF-CARE METER ID UU14162636
[2017-08-09 05:09] LABS: POINT-OF-CARE METER ID UU14162636
[2017-08-09 09:54] LABS: BASE EXCESS 7.9 mEq/L (-3 to +3); BICARBONATE 33.6 mEq/L (22-26); CARBOXY HGB 1.8 % (0-5); METHEMOGLOBIN 1.8 % (0-1.5)
[2017-08-09 09:55] LABS: COMMENTS - BLOOD GASES A+C+; DEVICE PB VENT; FI02 50 %; MECHANICAL RATE 16 resp/min; MODE ACVC+; PCO2 53 mm Hg (35-45); PEEP 8 CM/H20; PO2 126 mm Hg (80-100); SITE LR; TIDAL VOLUME 450 ML; TOTAL RESP RATE 16 resp/min; pH 7.41 (7.35-7.45)
[2017-08-09 09:59] LABS: EOSINOPHIL (%) 0 % (0-5); HEMATOCRIT 28.2 % (36.0-46.0); IMMATURE GRANULOCYTE (%) 1.1 % (0.0-0.7); IMMATURE GRANULOCYTE COUNT 0.1 K/uL; INSTRUMENT ABS NEUTROPHIL CT 8.5 K/uL; LYMPHOCYTE COUNT 0.3 K/uL (1.0-2.8); MCH 27.2 PG (29.0-34.0); MCHC 30.5 G/DL (30.0-36.0); MCV 89.2 FL (83-99); MEAN PLAT.VOLUME 10.2 uM^3 (9.5-12.4); MONOCYTE (%) 6.2 % (3-12); MONOCYTE COUNT 0.6 K/uL (0-0.8); NEUTROPHIL (%) 89.6 % (45-76); NEUTROPHIL COUNT 8.5 K/uL (1.8-6.4); NRBC (%) 0.2 /100 WBC (0-0); PLATELET COUNT 249 K/uL (156-360); RBC DIS.WIDTH-CV 16.3 % (11.8-14.6); RBC DIS.WIDTH-SD 53.8 % (39-53); RED BLOOD COUNT 3.16 M/uL (3.80-5.20); WHITE BLOOD COUNT 9.4 K/uL (4.1-10.2)
[2017-08-09 10:34] LABS: ANION GAP 12 MEQ/L (2-14); CHLORIDE 103 MEQ/L (99-109); GFR ESTIMATE (CALCULATED) 27 mL/min/; GLUCOSE 244 mg/dL (70-99); MAGNESIUM 2.6 mg/dl (1.3-2.7); POTASSIUM 4.5 MEQ/L (3.7-5.4); SAMPLE HEMOLYSIS CHECK 0; SAMPLE ICTERIC CHECK 0; SAMPLE LIPEMIA CHECK 0; SODIUM 144 MEQ/L (136-147); UREA NITROGEN (BUN) 109 mg/dL (9-23)
[2017-08-09 11:57] LABS: POINT-OF-CARE METER ID UU13113803; POINT-OF-CARE USER ID 612031313
[2017-08-09 17:43] LABS: POINT-OF-CARE METER ID UU14162636; POINT-OF-CARE USER ID 612031313
[2017-08-09 23:21] LABS: POINT-OF-CARE METER ID UU14208751
[2017-08-10] VITALS (11 sets, daily range): BP systolic 106–149; BP diastolic 47–75
[2017-08-10 05:36] LABS: POINT-OF-CARE METER ID UU14208751
[2017-08-10 05:41] LABS: EOSINOPHIL (%) 0 % (0-5); HEMATOCRIT 28.1 % (36.0-46.0); IMMATURE GRANULOCYTE (%) 1.6 % (0.0-0.7); IMMATURE GRANULOCYTE COUNT 0.2 K/uL; INSTRUMENT ABS NEUTROPHIL CT 9.5 K/uL; LYMPHOCYTE COUNT 0.3 K/uL (1.0-2.8); MCH 26.6 PG (29.0-34.0); MCHC 29.9 G/DL (30.0-36.0); MCV 88.9 FL (83-99); MEAN PLAT.VOLUME 10.3 uM^3 (9.5-12.4); MONOCYTE (%) 3.8 % (3-12); MONOCYTE COUNT 0.4 K/uL (0-0.8); NEUTROPHIL (%) 92.1 % (45-76); NEUTROPHIL COUNT 9.5 K/uL (1.8-6.4); PLATELET COUNT 261 K/uL (156-360); RBC DIS.WIDTH-CV 16.3 % (11.8-14.6); RBC DIS.WIDTH-SD 53.7 % (39-53); RED BLOOD COUNT 3.16 M/uL (3.80-5.20); WHITE BLOOD COUNT 10.3 K/uL (4.1-10.2)
[2017-08-10 06:45] LABS: ANION GAP 12 MEQ/L (2-14); CHLORIDE 106 MEQ/L (99-109); GFR ESTIMATE (CALCULATED) 27 mL/min/; GLUCOSE 234 mg/dL (70-99); MAGNESIUM 2.9 mg/dl (1.3-2.7); POTASSIUM 4.7 MEQ/L (3.7-5.4); SAMPLE HEMOLYSIS CHECK 0; SAMPLE ICTERIC CHECK 0; SAMPLE LIPEMIA CHECK 0; SODIUM 149 MEQ/L (136-147)
[2017-08-10 07:00] LABS: UREA NITROGEN (BUN) 104 mg/dL (9-23)
== END 2017-08-10 15:30 | DRG 166 ==
LOC: EME 18:07 → EDOF 22:31 → 4WEST 22:31 → ENRESERV 22:33 → 4WEST 08-01 01:01
PROVIDERS: Emergency Medicine; Internal Medicine Critical Care Medicine; Internal Medicine Pulmonary Disease; Specialist
DX: J96.21 Acute and chronic respiratory failure with hypoxia (principal); J96.22 Acute and chronic respiratory failure with hypercapnia; I21.4 Non-ST elevation (NSTEMI) myocardial infarction; C34.12 Malignant neoplasm of upper lobe, left bronchus or lung; J91.0 Malignant pleural effusion; I46.9 Cardiac arrest, cause unspecified; J44.0 Chronic obstructive pulmonary disease with (acute) lower respiratory infection; J18.9 Pneumonia, unspecified organism; Y95 Nosocomial condition; N17.9 Acute kidney failure, unspecified; T17.590A Other foreign object in bronchus causing asphyxiation, initial encounter; E87.3 Alkalosis; J98.11 Atelectasis; E11.22 Type 2 diabetes mellitus with diabetic chronic kidney disease; J44.1 Chronic obstructive pulmonary disease with (acute) exacerbation; I13.0 Hypertensive heart and chronic kidney disease with heart failure and stage 1 through stage 4 chronic kidney disease, or unspecified chronic kidney disease; N18.3 Chronic kidney disease, stage 3 (moderate); I50.9 Heart failure, unspecified; D63.1 Anemia in chronic kidney disease; Z66 Do not resuscitate; E11.65 Type 2 diabetes mellitus with hyperglycemia; I25.10 Atherosclerotic heart disease of native coronary artery without angina pectoris; R00.0 Tachycardia, unspecified; F03.90 Unspecified dementia, unspecified severity, without behavioral disturbance, psychotic disturbance, mood disturbance, and anxiety; K21.9 Gastro-esophageal reflux disease without esophagitis; F32.9 Major depressive disorder, single episode, unspecified; I25.2 Old myocardial infarction; E66.9 Obesity, unspecified; Z68.37 Body mass index [BMI] 37.0-37.9, adult; Z87.891 Personal history of nicotine dependence; Z79.84 Long term (current) use of oral hypoglycemic drugs; Z99.81 Dependence on supplemental oxygen
CPT/HCPCS: 36600; 70450; 71010; 71020; 71250; 76942; 80048; 80048 91; 80053; 81003; 82803; 82945; 82948; 83605; 83615 91; 83735; 83880; 84100; 84157; 84484; 85025; 85025 91; 85027; 85379; 85610; 85730; 86850; 86900; 86901; 86920; 87040; 87070; 87075; 87086; 87205; 87641; 88108; 88305; 89051; 93005; 94002; 94003; 94640; 94640 76; 99202; 99281; 99285; C1751; J0456; J0692; J1644; J1815; J1940; J1956; J2250; J2704; J2930; J3370; J7030; J7050; J7512; P9016; S0028